=== PATIENT | male | born 1960 | race Caucasian/White ===

== ENCOUNTER 2017-04-12 11:54 | Emergency (ER) | payer OTHER | END 2017-04-12 16:20 | disposition home or self-care (01) | LOC: FER 11:54 | DX: L03.031 Cellulitis of right toe (principal); M54.5 Low back pain; F17.210 Nicotine dependence, cigarettes, uncomplicated; I73.1 Thromboangiitis obliterans [Buerger's disease] | CPT/HCPCS: 72072; 72100; 73660; J1885 ==

== ENCOUNTER 2017-05-15 17:39 | Emergency (ER) | payer OTHER | END 2017-05-15 18:48 | disposition home or self-care (01) | LOC: FER 17:39 | DX: Z48.02 Encounter for removal of sutures (principal); G62.9 Polyneuropathy, unspecified; R01.1 Cardiac murmur, unspecified; F17.210 Nicotine dependence, cigarettes, uncomplicated | CPT/HCPCS: 99281 ==